=== PATIENT | male | born 1975 | race Hispanic/Latino ===

== ENCOUNTER 2019-12-29 22:56 | Inpatient (IN) | payer OTHER, SELFPAY ==
[2019-12-29] MEDS ORDERED: Adacel (T-DAP) 0.5 ML SYRINGE ONE (23:16)
[2019-12-29 23:24] LABS: #Basophils 0.1 thou/uL (0.0-0.2); #Eosinphils 0.1 thou/uL (0.0-0.7); #Lymphocytes 2.9 thou/uL (1.20-3.40); #Monocytes 0.9 thou/uL (0.11-0.59); #Neutrophils 15.9 thou/uL (1.40-6.50); %Basophils 0.3 % (0.0-1.0); %Eosinophils 0.5 % (0.0-10.0); %Lymphocytes 14.4 % (21.0-51.0); %Monocytes 4.6 % (0.0-10.0); %Neutrophils 80.3 % (42.0-75.0); Hemoglobin 12.9 g/dL (14.0-18.0); Mean Corpuscular HGB CONC 35.5 g/dL (32.0-36.0); Mean Corpuscular Hemoglobin 31.7 pg (27.0-31.0); Mean Corpuscular Volume 89.1 fL (78.0-98.0); Mean Platelet Volume 8.7 fL (7.4-10.4); Platelet Count 245 thou/uL (130-400); RBC Distribution Width 12.5 % (11.5-14.5); Red Blood Cell (RBC) Count 4.08 mill/uL (4.70-6.10); White Blood Cell (WBC) Count 19.9 thou/uL (4.8-10.8)
[2019-12-29] MEDS ORDERED: Fentanyl 100 MCG/2 ML VIAL ONE (23:29)
[2019-12-29 23:30] LABS: INR-International Normal Ratio 1.1; PTT 26.7 sec (22.9-36.1); Prothrombin Time 13.8 sec (12.0-14.7)
[2019-12-29] MEDS ORDERED: Succinylcholine Chloride 20 MG/ML 10 ml SYRINGE FS ONE (23:35)
[2019-12-29] MEDS ORDERED: Glycopyrrolate 0.2 MG/ML 5 ML SYRINGE ONE (23:35)
[2019-12-29] MEDS ORDERED: Rocuronium Bromide 10 MG/ML (10ML VIAL) ONE (23:35)
[2019-12-29] MEDS ORDERED: Lidocaine 1% PF 5 ML VIAL ONE (23:35)
[2019-12-29] MEDS ORDERED: PROPOFOL 200 MG/20 ML VIAL ONE (23:35)
[2019-12-29] MEDS ORDERED: Ondansetron PF 4 MG/2 ML Vial ONE (23:35)
[2019-12-29] MEDS ORDERED: Lidocaine 1% w/Epinephrine 1:100K 20 ML VIAL ONE (23:38)
[2019-12-29] MEDS ORDERED: Bupivacaine PF 0.5% 30 ML VIAL ONE (23:38)
[2019-12-29] MEDS ORDERED: Heparin 5,000 UNITS/ML VIAL ONE (23:38)
[2019-12-29] MEDS ORDERED: Protamine Sulfate 50 MG/5 ML VIAL ONE (23:38)
[2019-12-29] MEDS ORDERED: Midazolam HCl 2 mg/2 ml Vial ONE (23:39)
[2019-12-29] MEDS ORDERED: Fentanyl 250 MCG/5 ML VIAL ONE (23:39)
[2019-12-29 23:46] LABS: ALT (SGPT) 23 U/L (8-55); AST (SGOT) 21 U/L (5-34); Albumin 3.6 g/dL (3.5-5.0); Alkaline Phosphatase 73 U/L (40-110); Anion Gap 15 mmol/L (10-20); BUN (Urea Nitrogen) 14 mg/dL (8.9-20.6); Bilirubin, Total 0.3 mg/dL (0.2-1.2); Calc. Creatinine Clearance 0 mL/min (70-130); Carbon Dioxide 22 mmol/L (22-29); Chloride 104 mmol/L (98-107); Estimated GFR-MDRD 67; Globulin 2.3 g/dL (2.4-3.5); Glucose 375 mg/dL (70-105); Potassium 4.1 mmol/L (3.5-5.1); Protein, Total 5.9 g/dL (6.0-8.3); Sodium 137 mmol/L (136-145)
[2019-12-30] MEDS ORDERED: Ondansetron PF 4 MG/2 ML Vial IVP PRN (00:21)
[2019-12-30] MEDS ORDERED: Dextrose 50% Abboject 50 ML SYRINGE SLOW IVP PRN (00:21)
[2019-12-30] MEDS ORDERED: Dextrose 5% in Water 1,000 ML IV PRN (00:21)
[2019-12-30] MEDS ORDERED: hydrALAZINE 20 MG/ML VIAL SLOW IVP PRN (00:21)
[2019-12-30] MEDS ORDERED: Morphine 4 MG/ML VIAL SLOW IVP PRN (00:21)
[2019-12-30] MEDS ORDERED: Insulin Regular 300 UNITS/3 ML VIAL SC PRN (00:21)
[2019-12-30] MEDS ORDERED: Cyclobenzaprine 10 MG TAB PO PRN (00:24)
[2019-12-30] MEDS ORDERED: traMADol HCl 50 MG TAB PO PRN ×2 (00:24)
[2019-12-30] MEDS ORDERED: Meperidine HCl/PF 25 MG/ML VIAL SLOW IVP PRN (00:26)
[2019-12-30] MEDS ORDERED: HYDROmorphone 2 MG/ML VIAL SLOW IVP PRN (00:26)
[2019-12-30] MEDS ORDERED: Promethazine HCl 25 MG/ML VIAL IM PRN (00:26)
[2019-12-30] MEDS ORDERED: Promethazine HCl 25 MG/ML VIAL SLOW IVP PRN (00:26)
[2019-12-30] MEDS ORDERED: Ondansetron HCl/PF 4 MG/2 ML Vial IVP PRN (00:26)
[2019-12-30] MEDS ORDERED: Albumin 5% 500 ML ONE (00:35)
[2019-12-30 00:51] LABS: Phosphorus 3.8 mg/dL (2.3-4.7)
--- NOTE | 2019-12-30 02:02 | OP ---
DATE OF PROCEDURE: 12/29/2019 PREOPERATIVE DIAGNOSES: 1. Laceration level, one trauma, right forearm; 8 cm transverse laceration of the skin, subcutaneous tissue with pulsatile bleeding. 2. Another 4 cm laceration of the medial forearm junction, proximal third, distal two-thirds forearm, volar. DISASTER OR DAMAGE CONTROL SPECIALIST: Dr. Robin. PROCEDURE PERFORMED: Repair of radial artery, repair of radial nerve, ligation of radial veins and cephalic vein, forearm (clips); repair of brachioradialis muscle; splint applied to the left arm for 2 weeks; change in hand therapy for a removable splint. BLOOD TRANSFUSED: 3 units of blood; one initiated in the emergency room, two in the operating room. DESCRIPTION OF PROCEDURE: The patient was taken to the operating room, where under general anesthesia, pressure held on the wound, tourniquet removed operating room tourniquet applied. Tourniquet in the emergency room reportedly had been placed at 2200. It was removed at 2355 and the OR tourniquet applied at 2357. Tourniquet relieved at 12:45. Once the tourniquet was inflated, the right upper extremity was prepared with Betadine and draped in a routine fashion. Wound evacuated of hematoma and explored. Radial artery was transected cleanly. Both ends identified. Had good forward bleeding and back bleeding. Atraumatic vascular clamps were applied. The radial nerve was identified. Veins were controlled with small clips. The cephalic vein forearm had been transected and it was clipped. Wound irrigated. Radial artery is noted to have good forward flow and backflow. Once the tourniquet was removed relieved and vascular clamps applied. Radial artery repaired end-to-end with continuous interrupted suture of 6-0 Prolene. Vascular clamps were released, and there was good pulse in the wrist. Of note is that when the radial artery was occluded, the patient had good Doppler signal, ulnar and radial at the wrist indicating good collateral flow and an intact palmar arch. Once the radial artery is repaired, the radial nerve was repaired with three quadrant sutures of 6-0 Prolene. Wound irrigated. Hemostasis gained with cautery. Wound irrigated and then Dr. Robin repaired the muscle, approximating the fascia with 2-0 Vicryl [id number]. Subcutaneous tissue was approximated with 3-0 Monocryl, skin with subdermal and 4-0 Monocryl. The more medial wound likewise approximated 3-0 Monocryl, 4-0 Monocryl and Dermaglue and sterile dressings applied. Dorsal splint applied. The patient tolerated the procedure well. Job ID: [id number]
[2019-12-30] MEDS: Sodium Chloride 0.9% 1,000 ML IV SCH ×2 (03:10→09:26)
[2019-12-30 04:07] LABS: Lactic Acid 2.2 mmol/L (0.5-2.2)
[2019-12-30] MEDS: Acetaminophen 500 MG TAB PO SCH ×3 (05:00→17:36)
[2019-12-30 05:12] VITALS: BMI 33.0
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
[2019-12-30 06:10] LABS: INR-International Normal Ratio 1.1; Prothrombin Time 13.8 sec (12.0-14.7)
[2019-12-30] MEDS: Insulin Regular 300 UNITS/3 ML VIAL SC PRN ×3 (06:10→15:51)
[2019-12-30 06:22] LABS: #Lymphocytes 1.2 thou/uL (1.20-3.40); #Monocytes 0.2 thou/uL (0.11-0.59); #Neutrophils 12.2 thou/uL (1.40-6.50); %Basophils 0.1 % (0.0-1.0); %Eosinophils 0.2 % (0.0-10.0); %Lymphocytes 8.9 % (21.0-51.0); %Monocytes 1.8 % (0.0-10.0); %Neutrophils 89.2 % (42.0-75.0); Hemoglobin 12.3 g/dL (14.0-18.0); Mean Corpuscular HGB CONC 35.4 g/dL (32.0-36.0); Mean Corpuscular Hemoglobin 32.2 pg (27.0-31.0); Mean Corpuscular Volume 91.1 fL (78.0-98.0); Mean Platelet Volume 9.1 fL (7.4-10.4); Platelet Count 120 thou/uL (130-400); Platelet Morphology Comment Appears Decreased; Red Blood Cell (RBC) Count 3.83 mill/uL (4.70-6.10); White Blood Cell (WBC) Count 13.7 thou/uL (4.8-10.8)
[2019-12-30 06:25] LABS: Hemoglobin A1c 7.4 % (4.0-6.0)
[2019-12-30 06:34] LABS: Lactic Acid 1.6 mmol/L (0.5-2.2)
[2019-12-30 06:39] LABS: Anion Gap 12 mmol/L (10-20); BUN (Urea Nitrogen) 11 mg/dL (8.9-20.6); Calc. Creatinine Clearance 177 mL/min (70-130); Calcium 7.1 mg/dL (7.8-10.44); Carbon Dioxide 21 mmol/L (22-29); Chloride 105 mmol/L (98-107); Estimated GFR-MDRD Greater than 90; Glucose 273 mg/dL (70-105); Magnesium 1.9 mg/dL (1.6-2.6); Potassium 4.3 mmol/L (3.5-5.1); Sodium 134 mmol/L (136-145)
[2019-12-30 07:41] VITALS: TEMP 98.1
[2019-12-30] MEDS ORDERED: Senokot S 8.6-50 MG TAB PO SCH (09:00)
[2019-12-30] MEDS ORDERED: Polyethylene Glycol 3350 17 GM Packet PO SCH (09:00)
[2019-12-30] MEDS ORDERED: Famotidine 20 MG TAB PO SCH (09:00)
[2019-12-30] MEDS: CEFAZOLIN 2 GM in Premix Bag 1 BAG IVPB SCH ×2 (09:24→15:47)
[2019-12-30] MEDS: Gabapentin 300 MG CAP PO SCH ×2 (09:25→15:47)
[2019-12-30] MEDS ORDERED: Magnesium Sulfate 2 GM in Sodium Chloride 0.9% 100 ML IVPB SCH (09:30)
[2019-12-30] MEDS ORDERED: Magnesium 2 GM/50 ML 2 GM in Premix Bag 1 BAG IVPB SCH (09:30)
--- NOTE | 2019-12-30 11:12 | PRG ---
DATE OF SERVICE: 12/30/2019 SUBJECTIVE: The patient is doing very well this morning, states that his pain is well controlled. He is tolerating the breakfast well without any nausea or vomiting. He has ambulated to the restroom and back. Voiding without difficulty. He is using incentive spirometry and able to reach 2500 mL. He is in very good spirits this morning, is eager to keep improving. No concerns. OBJECTIVE: VITAL SIGNS: Temperature 98.1, pulse 84, respiratory rate 16, O2 saturation 97% on room air, blood pressure 128/85. GENERAL: Well appearing, in no acute distress, sitting upright in bed, comfortable. Working with incentive spirometry and deep cough. He is in good spirits overall. HEENT: Atraumatic. Extraocular movements are intact. Moist mucous membranes. RESPIRATORY: Equal and symmetric chest wall expansion. Using incentive spirometry, reaching 2500 mL as well as regular deep coughs. EXTREMITIES: Right upper extremity dressing clean, dry, and intact. Distal digits are freely mobile. Cap refill less than 2 seconds. Normal sensation. LABORATORY VALUES: Hemoglobin 12.3, white blood cell count 13.7. Sodium 134, potassium 4.3, A1c 7.4, magnesium 1.9. ASSESSMENT: 1. Traumatic right forearm laceration with radial artery bleed status post repair, postop day 1. 2. Newly diagnosed type 2 diabetic. PLAN: The patient is currently postop day #1 from right forearm laceration repair and radial artery repair. He tolerated the procedure well. He says his pain is well controlled. Continue with aggressive pulmonary toilet and incentive spirometry. Continue to work with Occupational Therapy today. We will discontinue IV fluids. We will provide diabetes education as the patient will likely need to be started on oral medications upon discharge and need good outpatient followup. Continue pain control regimen. Anticipate discharge tomorrow pending clinical course. The patient was seen and examined by Dr. Sutotn on morning rounds. The above plan was discussed with the patient at bedside, voiced agreement and understanding of the plan. All questions were answered appropriately. Job ID: [id number]
[2019-12-30 12:48] VITALS: BP 121/82
--- NOTE | 2019-12-30 13:11 | PRG ---
DATE OF SERVICE: 12/30/2019 Lester Cash is a 44-year-old male, who early this morning was taken to the operating room for repair of a deep laceration to his volar mid right forearm. He had repair of his radial artery and radial nerve, probably mostly sensory. This morning, he complains of some mild paresthesias in the webspace of his thumb, but otherwise he is able to move his fingers well. He has a splint limiting wrist motion. I have explained the importance of limiting wrist motion to allow healing. The patient does not have insurance. Plan is to discharge him home today and he will have to find a way for him to have a splint made as an outpatient. He will follow up in my office in 1 to 2 weeks. He insists on going home to care for his pets. Job ID: [id number]
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
== END 2019-12-30 18:00 | disposition home or self-care (01) | DRG 908 ==
LOC: ERS 22:56 → SURG A 23:40 → SDC/OP 12-30 00:04 → SURG A 12-30 03:28
PROVIDERS: ADMIT Specialist; ATTEND Specialist
PROC: 01Q60ZZ Repair Radial Nerve, Open Approach (ICD-10-PCS; principal; 2019-12-30)
PROC: 0X3D0ZZ Control Bleeding in Right Lower Arm, Open Approach (ICD-10-PCS; 2019-12-30)
PROC: 0KQ90ZZ Repair Right Lower Arm and Wrist Muscle, Open Approach (ICD-10-PCS; 2019-12-30)
DX: S55.111A Laceration of radial artery at forearm level, right arm, initial encounter (principal); S56.821A Laceration of other muscles, fascia and tendons at forearm level, right arm, initial encounter; S54.21XA Injury of radial nerve at forearm level, right arm, initial encounter; X58.XXXA Exposure to other specified factors, initial encounter; E11.9 Type 2 diabetes mellitus without complications; Z91.040 Latex allergy status; Z88.8 Allergy status to other drugs, medicaments and biological substances; Z88.1 Allergy status to other antibiotic agents
CPT/HCPCS: 36415; 36416; 36430; 80048; 80053; 83036; 83605; 83735; 84100; 85025; 85610; 85730; 86850; 86900; 86901; 90715; J0690; J1644; J1815; J2001; J2250; J2405; J2704; J2720; J3010; J3475; P9016; P9045; S0020